=== PATIENT | female | born 1965 ===

== ENCOUNTER 2022-02-21 05:45 | Day surgery (SDC) | payer OTHER ==
[~2022-02-21 05:45] MED LIST: AVALIDE 300-121 EACH PO; CARVEDILOL6.25 M1 PO; IRBESARTAN-HCT1 EAC1 PO; NEXIUM40 M1 PO; PROBIOTI PO; SINGULAIR10 MG PO; TERAZOSIN HCL2 M1 PO
== END 2022-02-21 13:25 | disposition home or self-care (01) ==
LOC: CIR.AMB 05:45
PROVIDERS: ATTEND Orthopaedic Surgery Hand Surgery
DX: M65.321 Trigger finger, right index finger (principal); G56.01 Carpal tunnel syndrome, right upper limb; I10 Essential (primary) hypertension; J45.909 Unspecified asthma, uncomplicated; E66.01 Morbid (severe) obesity due to excess calories